=== PATIENT | male | born 1980 | race Caucasian/White ===

== ENCOUNTER 2018-04-04 09:03 | Emergency (ER) | payer OTHER ==
[~2018-04-04] VITALS: Ht 193 cm; Wt 122.7 kg
[2018-04-04 09:06] VITALS: BP 153/98; TEMP 97
[2018-04-04] MEDS ORDERED: NORCO 325 MG-7.1 TAB PO (09:32)
[2018-04-04] MEDS ORDERED: FLEXERIL 1010 MG/TAB PO (09:32)
[2018-04-04 09:56] VITALS: PULSE 70
== END 2018-04-04 09:57 | disposition home or self-care (01) ==
LOC: COL.ER 09:03
DX: S33.9XXA Sprain of unspecified parts of lumbar spine and pelvis, initial encounter (principal); I10 Essential (primary) hypertension; F17.210 Nicotine dependence, cigarettes, uncomplicated; Z98.890 Other specified postprocedural states; X50.0XXA Overexertion from strenuous movement or load, initial encounter
CPT/HCPCS: J1170; J1885; J2060